=== PATIENT | female | born 1975 | race American Indian/Alaskan Native ===

== ENCOUNTER 2021-04-05 20:57 | Emergency (ER) | payer SELFPAY ==
[2021-04-06 00:53] VITALS: BP 120/76
== END 2021-04-06 01:00 | disposition left against medical advice (07) ==
LOC: ED 20:57
DX: H57.89 Other specified disorders of eye and adnexa (principal); Z53.21 Procedure and treatment not carried out due to patient leaving prior to being seen by health care provider